=== PATIENT | male | born 1975 | race Caucasian/White ===

== ENCOUNTER 2021-01-20 13:24 | Emergency (ER) | payer SELFPAY ==
[~2021-01-20] VITALS: Ht 177.8 cm; Wt 72.6 kg
[2021-01-20] MEDS ORDERED: SODIUM CHLORIDE 0.9% 1000ML 1,000 ML IV STA (13:48)
[2021-01-20] MEDS ORDERED: ONDANSETRON HCL INJ 2MG/ML 2ML 2 MG/ML VIAL IV ONE (14:00)
[2021-01-20] MEDS ORDERED: CEFTRIAXONE SOD 1 GM VIAL IV ONE (14:00)
[2021-01-20] MEDS ORDERED: KETOROLAC TROMETHAMINE 30 MG/ML VIAL IV ONE (14:00)
[2021-01-20] MEDS ORDERED: CEFTRIAXONE SOD 1 GM in SODIUM CHLORIDE 0.9% 50ML 50 ML IV ONE (14:00)
[2021-01-20] MEDS ORDERED: CEFTRIAXONE SOD 1 GM VIAL ONE (14:06)
[2021-01-20] MEDS ORDERED: ONDANSETRON HCL INJ 2MG/ML 2ML 2 MG/ML VIAL ONE (14:06)
[2021-01-20] MEDS ORDERED: SODIUM CHLORIDE 0.9% 1000ML 1,000 ML ONE (14:06)
[2021-01-20] MEDS ORDERED: KETOROLAC TROMETHAMINE 30 MG/ML VIAL ONE (14:06)
[2021-01-20] MEDS ORDERED: DOXYCYCLINE HY100 MG PO (15:11)
[2021-01-20] MEDS ORDERED: IBUPROFEN IB200 MG PO (15:11)
[2021-01-20] MEDS ORDERED: CEFDINIR300 MG PO (15:11)
[2021-01-20] MEDS ORDERED: ACETAMINOPHEN500 MG PO (15:11)
== END 2021-01-20 15:36 | disposition home or self-care (01) ==
LOC: FSED 13:45
DX: N50.811 Right testicular pain (principal); N45.3 Epididymo-orchitis; B20 Human immunodeficiency virus [HIV] disease
CPT/HCPCS: 74176; 76870; 80048; 81003; 99284; J0696; J1885; J2405; J7030